=== PATIENT | female | born 1975 | race Caucasian/White ===

== ENCOUNTER 2017-04-18 07:42 | Emergency (ER) | payer OTHER ==
[2017-04-18 08:06] VITALS: BP 125/91
--- NOTE | 2017-04-18 15:31 | UC ---
Saul Linder Tiffany, scribed for Allie Kim DO on 04/18/17 at 0833 . General HPI - HPI Summary HPI Summary: The patient is a 41 year old F presenting to [facility] with a chief complaint of cold -like symptoms since nine days ago, worse since four days ago. The patient rates the pain 7/10 in severity. Symptoms aggravated by nothing. Symptoms alleviated by nothing. Patient reports sinus congestion, nasal drainage, pressure in head, sore throat, ear pressure, and insomnia. Patient denies cough , neck pain, chest pain, nausea, and vomiting. - History of Current Complaint Chief Complaint: UCGeneralIllness Stated Complaint: sinus Time Seen by Provider: 04/18/17 08:15 Hx Obtained From: Patient Hx Last Menstrual Period: 04/08/17 Onset/Duration: Lasting Days - Nine days, Still Present, Worse Since - Four days ago Current Severity: Moderate Pain Intensity: 7 Aggravating: Nothing Alleviating: Nothing Associated Signs & Symptoms: Positive: Other - reports sinus congestion, nasal drainage, pressure in head, sore throat, ear pressure, and insomnia; NEGATIVE: cough, neck pain, chest pain, nausea, and vomiting. - Allergy/Home Medications Allergies/Adverse Reactions: Allergies Allergy/AdvReac Type Severity Reaction Status Date / Time No Known Allergies Allergy Verified 04/18/17 07:59 PMH/Surg Hx/FS Hx/Imm Hx Previously Healthy: Yes Other Endocrine History: NEGATIVE: Diabetes Other Cardiovascular History: NEGATIVE: Hypertension Other Respiratory History: NEGATIVE: Asthma - Surgical History Surgical History: Yes Surgery Procedure, Year, and Place: X2 - Family History Known Family History: Positive: Other - Pt denies any family history - Social History Alcohol Use: Occasionally Substance Use Type: None Smoking Status (MU): Never Smoked Tobacco Review of Systems Constitutional: Other - Pressure in head ENT: Sore Throat, Ear Ache, Nasal Discharge, Sinus Congestion Respiratory: Negative - Cough Cardiovascular: Negative - Chest pain Gastrointestinal: Negative - Nausea, vomitting Musculoskeletal: Negative - Neck pain Psychological: Other - Insomnia All Other Systems Reviewed And Are Negative: Yes Physical Exam Triage Information Reviewed: Yes Vital Signs: Initial Vital Signs Temp 99.1 F 04/18/17 08:00 Pulse 81 04/18/17 08:00 Resp 18 04/18/17 08:00 BP 125/91 04/18/17 08:00 Pulse Ox 100 04/18/17 08:00 Vital Signs Reviewed: Yes - Additional Comments Appearance: Well-Appearing, No Pain Distress, Well-Nourished Eyes: conjunctiva clear, no discharge ENT: Hearing grossly normal, no muffled/hoarse voice. TMs normal, negative tonsillar swelling, negative tonsillar exudate, negative trismus. Pharynx is normal. Sinus congestion, nasal drainage. Tender to palpation on sinuses. Tender lymphadenopathy. Neck: Normal, Supple Respiratory/Lung Sounds: Lungs clear, Normal breath sounds, No respiratory distress, No accessory muscle use Cardiovascular: RRR, No murmur Musculoskeletal: Normal Neurological: Alert, muscle tone normal Psychiatric:Normal, age appropriate behavior Skin: Normal, Warm, Dry, Normal color Course/Dx - Course Course Of Treatment: Patient will be discharged with prescription for Augmentin and Mucinex and follow up from primary care provider. The patient is agreeable with this plan. High blood pressure noted. - Differential Dx - Multi-Symptom Provider Diagnoses: Sinusitis, Elevated blood pressure without diagnosis of hypertension Discharge - Discharge Plan Condition: Stable Disposition: HOME Prescriptions: Amoxicillin/Clavulanate TAB* [Augmentin TAB 875*] 875 mg PO BID #20 tab guaiFENesin ER TAB [Mucinex*] 600 mg PO BID PRN #1 box PRN Reason: Cough Patient Education Materials: Sinusitis (ED) Referrals: Elmer Clark MD [Primary Care Provider] - 2 Weeks Additional Instructions: TRY USING THE NETTI POT IN THE MORNINGS DISCUSSED. YOU MUST ALWAYS USE CLEAN WATER. REMEMBER, POSTURE IS AN IMPORTANT FACTOR IN SINUS DRAINAGE. MOVE YOUR NECK, BREATHE. AUGMENTIN: Augmentin is a mixture of amoxicillin and clavulanate. Amoxicillin is a member of the penicillin family. It covers the germs likely to cause ear, bronchial, and urinary infections better than plain penicillin. The addition of clavulanate allows it to cover staph infections of the skin, as well as resistant cases of ear and sinus infections. Your physician has chosen Augmentin for you because of the special nature of your situation. Augmentin is best taken with meals. Nausea after taking the medication is rare, but can occur. Diarrhea can occur, particularly in small children. Vaginal yeast infections, and oral thrush in infants are also common. Contact your physician if these problems occur. Allergy to penicillins is common. If you have had an allergic reaction to any drug of the penicillin family, you should never take any other penicillin. Notify your doctor at once if you develop hives, shortness of breath, swelling, or faintness. ANYTIME YOU TAKE AN ANTIBIOTIC, IT IS IMPORTANT TO REPLENISH THE BODY'S SUPPLY OF "GOOD BACTERIA." YOU CAN GET GOOD BACTERIA FROM HIGH QUALITY CULTURED FOODS SUCH LOCAL YOGURT, SOUR KRAUT, FANNY ELIANA, NATURALLY FERMENTED PICKLES AND PROBIOTIC DRINKS. YOU CAN ALSO GET GOOD BACTERIA FROM A PROBIOTIC SUPPLEMENT. EXPECTORANT MEDICATION: WE SENT IN A SCRIPT FOR MUCINEX SO THAT IT IS EASIER FOR YOU TO PICK THE RIGHT MED AT THE PHARMACY. HOWEVER, YOU CAN ALSO GO TO THE [employer] [facility]ORE AND BUY PLAIN GUAIFENESIN WITHOU BINDERS OR FILLERS. An expectorant medicine has been prescribed. This type of drug makes mucous thinner, helping the sinuses, nose, and bronchial tubes to remain free of pus and mucous. Expectorants make a cough less severe and more comfortable, and help infected sinuses drain. In general, antihistamines defeat the purpose of the expectorant by making mucous thicker. They should be avoided unless specifically recommended by your physician. The documentation as recorded by the Saul palafox Tiffany accurately reflects the service I personally performed and the decisions made by , Allie Kim DO.
== END 2017-04-18 08:53 | disposition home or self-care (01) ==
LOC: UCEAST 07:42
DX: J32.9 Chronic sinusitis, unspecified (principal); R03.0 Elevated blood-pressure reading, without diagnosis of hypertension
CPT/HCPCS: 99212; G0463

== ENCOUNTER 2018-06-05 16:48 | Emergency (ER) | payer OTHER ==
[2018-06-05 17:35] VITALS: BP 107/69
--- NOTE | 2018-06-05 18:04 | UC ---
Skin Complaint HPI - HPI Summary HPI Summary: "sores on right arm" patient believes they started as a bug bite now has worsening erythema spreading up arm---the areas do also itch - History of Current Complaint Chief Complaint: UCSkin Time Seen by Provider: 06/05/18 18:00 Stated Complaint: SORE ON ARM Hx Obtained From: Patient Hx Last Menstrual Period: one week ago ?: No Onset/Duration: Sudden Onset, Lasting Days - 3 Timing: Constant Pain Intensity: 2 Pain Scale Used: 0-10 Numeric Location: Discrete - right hand and forarm Character: Redness Aggravating Factor(s): Nothing Alleviating Factor(s): Nothing Associated Signs & Symptoms: Positive: Rash Related History: Possible Reaction to: Insect - Allergy/Home Medications Allergies/Adverse Reactions: Allergies Allergy/AdvReac Type Severity Reaction Status Date / Time No Known Allergies Allergy Verified 06/05/18 17:35 Home Medications: Home Medications Levothyroxine TAB* [Synthroid 25 MCG TAB*] 0.5 tab PO DAILY 06/05/18 [History Confirmed 06/05/18] PMH/Surg Hx/FS Hx/Imm Hx Previously Healthy: No Endocrine History: Hypothyroidism - Surgical History Surgical History: Yes Surgery Procedure, Year, and Place: X2 - Family History Known Family History: Positive: Other - Pt denies any family history - Social History Occupation: Employed Full-time Lives: With Family Alcohol Use: Occasionally Substance Use Type: None Smoking Status (MU): Never Smoked Tobacco Review of Systems All Other Systems Reviewed And Are Negative: Yes Constitutional: Positive: Negative Skin: Positive: Rash, Other - erythema right arm Eyes: Positive: Negative ENT: Positive: Negative Respiratory: Positive: Negative Cardiovascular: Positive: Negative Gastrointestinal: Positive: Negative Genitourinary: Positive: Negative Motor: Positive: Negative Neurovascular: Positive: Negative Musculoskeletal: Positive: Negative Neurological: Positive: Negative Psychological: Positive: Negative Is Patient Immunocompromised?: No Physical Exam Triage Information Reviewed: Yes Appearance: Well-Appearing, No Pain Distress, Well-Nourished Vital Signs: Initial Vital Signs Temp 98.2 F 06/05/18 17:31 Pulse 72 06/05/18 17:31 Resp 16 06/05/18 17:31 BP 107/69 06/05/18 17:31 Pulse Ox 100 06/05/18 17:31 Vital Signs Reviewed: Yes Eye Exam: Normal Eyes: Positive: Conjunctiva Clear ENT Exam: Normal ENT: Positive: Normal ENT inspection, Hearing grossly normal. Negative: Trismus , Muffled voice, Hoarse voice Dental Exam: Normal Neck exam: Normal Neck: Positive: Supple, Nontender, No Lymphadenopathy Respiratory Exam: Normal Respiratory: Positive: Chest non-tender, No respiratory distress, No accessory muscle use Cardiovascular Exam: Normal Cardiovascular: Positive: RRR, Pulses Normal, Brisk Capillary Refill Musculoskeletal Exam: Normal Musculoskeletal: Positive: Strength Intact, ROM Intact, No Edema Neurological Exam: Normal Neurological: Positive: Alert, Muscle Tone Normal Psychological Exam: Normal Skin Exam: Other Skin: Positive: Other - small open area with erythema and movement of erythema proximally Course/Dx - Course Course Of Treatment: stop cold packs---warm packs/wash 4-5 times a day add bactrim follow with pcp prn - Diagnoses Provider Diagnosis: Cellulitis of right upper limb Discharge - Sign-Out/Discharge Documenting (check all that apply): Patient Departure All imaging exams completed and their final reports reviewed: No Studies - Discharge Plan Condition: Stable Disposition: HOME Prescriptions: Sulfamethox/Trimethoprim DS* [Bactrim DS 800/160 TAB*] 1 tab PO BID #19 tab Patient Education Materials: Diphenhydramine (By mouth), Wound Infection (ED), Warm Compress or Soak (ED) Referrals: Elmer Clark MD [Primary Care Provider] - 3 Days - Billing Disposition and Condition Condition: STABLE Disposition: Home
[2018-06-05] MEDS ORDERED: Sulfamethox/Trimethoprim DS 800/160* TAB PO ONE ×2 (18:13→18:35)
[2018-06-07 22:12] LABS: HSV 1 PCR Negative (Negative)
[2018-06-08 18:13] LABS: Varicella Zoster Result Negative (Negative)
== END 2018-06-05 18:46 | disposition home or self-care (01) ==
LOC: UCEAST 16:48
DX: L03.113 Cellulitis of right upper limb (principal); E03.9 Hypothyroidism, unspecified
CPT/HCPCS: 87070; 87205; 87529; 87798; 99212; A9270-GY; G0463

== ENCOUNTER 2018-07-05 10:18 | Emergency (ER) | payer OTHER ==
--- OUTSIDE RECORDS SUMMARY | 2018-07-05 10:23 | XMS REPORT | Continuity of Care Document ---
:1975 External Reference #:[id number] Author Name JEFFERSON Raya Address [address] [place] [address] Care Team Providers Name Role Phone Elmer Clark M.D. 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 Primary Care Physician Unavailable Payers Date Identification Numbers Payment Provider Subscriber Effective: 2011 Policy Number: [id number] [facility] [employer] Group Number: [id number] [address] Group Name: [place] [address] PayID: [id number] Advance Directives Description No Information Available Problems Date Description Provider Status Onset: 06/18/2016 Chronic allergic conjunctivitis Wilson Warren M.D. Active Onset: 06/18/2016 Body mass index 20-24 - normal Wilson Warren M.D. Active Onset: 05/27/2015 Allergic rhinitis due to animals JEFFERSON Gore Active Onset: 06/08/2014 Allergic rhinitis Elvia Cedeno M.D. Active Onset: 06/08/2014 Allergic rhinitis due to pollen Elvia Cedeno M.D. 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 Home Environment Has central air Home Environment Stairs are present Home Environment Finished Basement Home Environment Cotton Comforter Home Environment Mattress is 5 years old Home Environment Regular Mattress Home Environment Cotton Mattress Cover Home Environment Mattress is encased in an allergy proof case Home Environment Pillows are encased in an allergy proof case Home Environment Pillows are polyester Home Environment Uses a dehumidifier Home Environment There are draperies in the home Home Environment The home is not jamal Home Environment The floors are carpeted Home Environment The floors are tile Home Environment The floors are wood Home Environment Uses forced air heating Home Environment Lives in an old house in [place] [facility] Home Environment Water Source: [facility] Smoke-Free Home is smoke-free Smoke-Free Work is smoke-free Pets None 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 daily Astepro 07/15/ Active Solution 0.15% 30ml 2 sprays J30.1 Chio 2012 in each [place], nostril [employer] twice daily Pataday 07/15/ Active Solution 0.2% 2.500 1 drop J30.1 Chio 2012 ml both eyes [place], as needed [employer] (rebate rxbin [id number], staff climate scientist ([id number]), rxpcn loyalty, rxgrp: [id number], id: [id number] Sun Allergy / Active Tablets 180mg 30tab 1 by mouth Elvia M 0000 s every day Fabi Cedeno Sulfamethoxazol / Active Tablets 800-160mg Take One Unknown e/Trimethoprim 0000 Tablet By DS Mouth Twice A Day Levothyroxine / Active Tablets 25mcg Unknown Sodium 0000 Immunizations CPT Code Status Date Vaccine Lot # [id number] Given Unknown Influenza Vaccine 94971 Given Unknown Influenza Vaccine 55429 Given Unknown Influenza Vaccine 58863 Given Unknown Influenza Vaccine Vital Signs Date Vital Result Comment 06/13/2018 4:06pm Height 59.25 inches 4'11.25" Weight 125.00 lb Weight 56.700 kg Respiratory Rate 16 /min Heart Rate 66 /min O2 % BldC Oximetry 98 % BP Systolic 109 mmHg BP Diastolic 68 mmHg BMI (Body Mass Index) 25.0 kg/m2 07/09/2017 1:32pm Height 59.5 inches 4'11.50" Weight 121.00 lb Weight 54.886 kg Respiratory Rate 20 /min Heart Rate 62 /min O2 % BldC Oximetry 98 % BP Systolic 117 mmHg BP Diastolic 65 mmHg BMI (Body Mass Index) 24.0 kg/m2 06/18/2016 3:59pm Height 59.5 inches 4'11.50" Weight 120.00 lb Weight 54.432 kg Respiratory Rate 16 /min Heart Rate 56 /min O2 % BldC Oximetry 99 % BP Systolic 104 mmHg BP Diastolic 64 mmHg BMI (Body Mass Index) 23.8 kg/m2 05/27/2015 3:23pm Height 59.5 inches 4'11.50" Weight 116.00 lb Weight 52.618 kg Respiratory Rate 16 /min Heart Rate 64 /min O2 % BldC Oximetry 98 % BP Systolic 104 mmHg BP Diastolic 64 mmHg BMI (Body Mass Index) 23.0 kg/m2 06/08/2014 11:22am Height 59.5 inches 4'11.50" Weight 116.00 lb Weight 52.618 kg Respiratory Rate 16 /min Heart Rate 66 /min O2 % BldC Oximetry 99 % BP Systolic 94 mmHg BP Diastolic 60 mmHg BMI (Body Mass Index) 23.0 kg/m2 07/15/2012 11:51am Weight 115.00 lb Weight 52.164 kg Respiratory Rate 20 /min Heart Rate 66 /min O2 % BldC Oximetry 98 % BP Systolic 94 mmHg BP Diastolic 70 mmHg Results Description No Information Available Procedures Description No Information Available Encounters Type Date Location Provider Dx Diagnosis Office Visit 06/13/2018 Anastasia Ahuja30.2 Other seasonal 4:00p [employer] allergic rhinitis J30.81 Allergic rhinitis due to animal (cat) (dog) hair and dander J30.1 Allergic rhinitis due to pollen H10.45 Other chronic allergic conjunctivitis J30.89 Other allergic rhinitis Office Visit 07/09/2017 1:40p Tolu Ahuja.2 Other seasonal [employer] allergic rhinitis J30.81 Allergic rhinitis due to animal (cat) (dog) hair and dander J30.1 Allergic rhinitis due to pollen H10.45 Other chronic allergic conjunctivitis J30.89 Other allergic rhinitis Office Visit 06/18/2016 4:00p [place] Wilson Warren J30.89 Other allergic M.D. rhinitis H10.45 Other chronic allergic conjunctivitis Z68.23 Body mass index (BMI) 23.0-23.9, adult Office Visit 05/27/2015 3:20p [place] JEFFERSON Gore J30.1 Allergic rhinitis due to pollen J30.81 Allergic rhinitis due to animal (cat) (dog) hair and dander J30.89 Other allergic rhinitis J30.2 Other seasonal allergic rhinitis Z68.23 Body mass index (BMI) 23.0-23.9, adult Office Visit 06/08/2014 11:20a [place] Elvia Cedeno, 477.0 Rhinitis Allergic M.D. Due To Pollen 477.8 Rhinitis Allergic Due To Other Allergen Office Visit 07/15/2012 11:40a [place] Elvia Cedeno, 477.0 Rhinitis Allergic M.D. Due To Pollen 477.8 Rhinitis Allergic Due To Other Allergen Office Visit 08/06/2010 11:40a [place] Elvia Cedeno, 477.0 Rhinitis Allergic M.D. Due To Pollen 477.8 Rhinitis Allergic Due To Other Allergen Office Visit 08/07/2009 8:40a [place] Elvia Cedeno, 477.0 Rhinitis Allergic M.D. Due To Pollen 477.8 Rhinitis Allergic Due To Other Allergen Office Visit 07/10/2009 10:00a [place] Elvia Cedeno, 477.0 Rhinitis Allergic M.D. Due To Pollen 477.8 Rhinitis Allergic Due To Other Allergen Plan of Treatment Future Appointment(s):06/12/2019 4:20 pm - JEFFERSON Raya at [facility] - JESSE Raya-CJ30.2 Other seasonal allergic qrlyejucB02.81 Allergic rhinitis due to animal (cat) (dog) hair and uamvobG59.1 Allergic rhinitis due to ltszmoF80.45 Other chronic allergic fvforgwjfkdrkvQ88.89 Other allergic rhinitisRecommendations:Continue all medications as prescribed.Refrain from wearing perfumes/scented colognes while visitingour office. Continue the Flonase Sensimist 2 sprays twice a day Continue the Pataday as needed Continue the Sun 1 daily Continue the Astepro 2 sprays daily.
[2018-07-05 10:37] VITALS: BP 150/107
--- NOTE | 2018-07-05 10:39 | UC ---
Head Injury HPI - HPI Summary HPI Summary: 42 yo female presents with facial injury. She tells me that she was running downhill and tripped - fell face forward and landed on her nose/right face. She had a nosebleed for awhile, but stopped with direct pressure. No LOC and was able to get to her feet on her own power. She took ibuprofen and applied ice to her face. She is breathing easily and has no difficulty breathing through her nose. She denies headache, dizziness, vision changes, weakness, neck pain, numbness, or tingling. She is confident her last tetanus was within the last 5 years. - History Of Current Complaint Chief Complaint: UCTrauma Stated Complaint: FELL HEAD/NOSE INJURY Time Seen by Provider: 07/05/18 10:39 Hx Obtained From: Patient Hx Last Menstrual Period: 06/25/18 Onset/Duration: Sudden Onset Severity Currently: Moderate Severity Initially: Moderate Pain Intensity: 7 Pain Scale Used: 0-10 Numeric - Allergies/Home Medications Allergies/Adverse Reactions: Allergies Allergy/AdvReac Type Severity Reaction Status Date / Time No Known Allergies Allergy Verified 07/05/18 10:28 Home Medications: Home Medications Fexofenadine/Pseudoephedrine [Sun-D 24 Hour Tablet] 1 each PO DAILY [History Confirmed 07/05/18] Fluticasone NASAL SPRAY 50MCG* [Flonase NASAL SPRAY 50MCG*] 2 spray BOTH NARES DAILY 07/05/18 [History Confirmed 07/05/18] Ibuprofen TAB* [Motrin TAB* 400 MG] 400 mg PO Q6H PRN 07/05/18 [History Confirmed 07/05/18] PMH/Surg Hx/FS Hx/Imm Hx Endocrine History: Hypothyroidism - Surgical History Surgical History: Yes Surgery Procedure, Year, and Place: X2 - Family History Known Family History: Positive: None - Social History Occupation: Employed Full-time Lives: With Family Alcohol Use: None Substance Use Type: None Smoking Status (MU): Never Smoked Tobacco Review of Systems All Other Systems Reviewed And Are Negative: Yes Constitutional: Positive: Negative Skin: Positive: Other - Abrasion and bruising face Eyes: Positive: Negative ENT: Positive: Other - Nose pain Respiratory: Positive: Negative Cardiovascular: Positive: Negative Gastrointestinal: Positive: Negative Musculoskeletal: Positive: Negative Neurological: Positive: Negative Psychological: Positive: Negative Physical Exam - Summary Physical Exam Summary: GENERAL: NAD. WDWN. No pain distress. SKIN: Superficial abrasion right nose. Mild ecchymosis right nasal bridge. HEENT: Head: Right nose with moderate edema and overlying superficial abrasion. TTP. Eyes: EOM intact without pain. PERRLA. No orbital tenderness. Nose: Nasal mucosa erythematous and edematous. Right nare with dried blood. NTTP maxillary and frontal sinus. NECK: Supple. Nontender. FROM CHEST: CTAB. No r/r/w. No accessory muscle use. Breathing comfortably and in no distress. CV: RRR. Without m/r/g. Pulses intact. Cap refill <2seconds NEURO: A&Ox3. 3 word recall, remote, recent memory, ability to follow 2-step directions, and attention intact. CN: II: Peripheral norton intact. Vision normal. III, IV, : EOMI. No nystagmus. PERRLA. V: Sensations intact and symmetric. Opens mouth and clenches teeth. VII: No facial asymmetry. Forehead wrinkles. Grins, shuts eyes, frowns, puffs cheeks. VIII: Hearing intact to finger rub. IX, X: Swallows and coughs. Uvula midline. XI: Shrugs shoulders. Turns head against resistance. XII: No tongue deviation Linmbc-om-vlpk are intact. Gait with normal base. Romberg: maintains balance, no pronator drift. Normal speech. No facial drooping. PSYCH: Age appropriate behavior. Triage Information Reviewed: Yes Vital Signs: Initial Vital Signs Temp 98.9 F 07/05/18 10:30 Pulse 88 07/05/18 10:30 Resp 20 07/05/18 10:30 BP 150/107 07/05/18 10:30 Pulse Ox 100 07/05/18 10:30 Vital Signs Reviewed: Yes Head Injury Course/Dx - Course Course Of Treatment: CT: There is a minimally angulated, nondisplaced fracture of the right nasal bone. Pt's wounds were cleansed with NS. Discussed results of CT with pt. Advised to take tylenol and ibuprofen for discomfort. Apply ice to face and nose. F/u with ENT next week or sooner if symptoms worsen or change. - Differential Dx/Diagnosis Provider Diagnosis: Facial trauma, Nasal fracture Discharge - Sign-Out/Discharge Documenting (check all that apply): Patient Departure All imaging exams completed and their final reports reviewed: Yes - Discharge Plan Condition: Stable Disposition: HOME Patient Education Materials: Nasal Fracture (ED) Referrals: Elmer Clark MD [Primary Care Provider] - Brandon Lincoln MD [Medical Doctor] - 1 Week Additional Instructions: If you develop a fever, shortness of breath, chest pain, new or worsening symptoms - please call your PCP or go to the ED. Your blood pressure was high at todays visit. Please see your primary provider within 4 weeks for recheck and re-evaluation. 1) Rest and apply ice to your nose/face throughout the day 2) Take tylenol/ibuprofen as directed for pain 3) Please call ENT at the number below to schedule a follow up appointment for a recheck next week - Billing Disposition and Condition Condition: STABLE Disposition: Home
== END 2018-07-05 11:44 | disposition home or self-care (01) ==
LOC: UCEAST 10:18
DX: S02.2XXA Fracture of nasal bones, initial encounter for closed fracture (principal); S00.33XA Contusion of nose, initial encounter; S00.31XA Abrasion of nose, initial encounter; W17.81XA Fall down embankment (hill), initial encounter; Y93.02 Activity, running; Y92.9 Unspecified place or not applicable; E03.9 Hypothyroidism, unspecified
CPT/HCPCS: 70486; 99212; G0463